=== PATIENT | male | born 1985 | race Hispanic/Latino ===

== ENCOUNTER 2020-09-10 14:57 | Inpatient (IN) | payer SELFPAY ==
[2020-09-10] MEDS ORDERED: HYDRALAZINE HCL 20 MG/ML VIAL ONE (15:53)
[2020-09-10] MEDS ORDERED: NA CHLORIDE 0.9% 1,000 ML ONE (15:53)
[2020-09-10 16:00] LABS: Absolute Lymphocytes (CBC) 1.5 K/uL (0.7-4.9); Basophils % 1.3 % (0-1.3); Lymphocytes % 18.1 % (15.3-44.8); MPV 10.9 fL (7.6-11.3); RBC Red Blood Cell Count 4.71 M/uL (4.33-5.43)
[2020-09-10 16:12] LABS: Protime INR 1.15
[2020-09-10] MEDS ORDERED: LABETALOL 20 MG/4ML SYRINGE IV ONE (16:14)
[2020-09-10] MEDS ORDERED: FUROSEMIDE 40 MG/4 ML VIAL ONE (16:14)
[2020-09-10 16:28] LABS: Albumin 2.8 g/dL (3.4-5.0); Bilirubin Direct 0.3 mg/dL (0-0.2); Bilirubin Total 1.4 mg/dL (0.2-1.0); Magnesium 2.4 mg/dL (1.8-2.4); Potassium 3.8 mmol/L (3.5-5.1); Protein, Total 5.7 g/dL (6.4-8.2); Troponin (Emerg Dept Use Only) 0.33 ng/mL (0.0-0.045)
--- NOTE | 2020-09-10 16:39 | RAD REPORT ---
EXAM DESCRIPTION: RAD - Chest Single View - 09/10/2020 3:44 pm CLINICAL HISTORY: CHEST PAIN COMPARISON: May 2017 TECHNIQUE: AP portable chest image was obtained 09/10/2020 3:44 pm . FINDINGS: No peripheral mass or consolidation. Interstitial markings are increased over comparison. Significant enlargement of the cardiac silhouette since prior imaging. Vascular engorgement is presen t. No measurable pleural effusion and no pneumothorax. No acute bony abnormality seen. No acute aorti c findings suspected. IMPRESSION: Mild to moderate CHF/ volume overload pattern.
[2020-09-10] MEDS ORDERED: HEPARIN 5000 UNIT/ML 1 ML VIAL ONE (17:33)
[2020-09-10] MEDS ORDERED: NITROGLYCERIN/D5W 50 MG/250 ML BTL IV ONE (17:34)
[2020-09-10] MEDS ORDERED: HEPARIN/D5W 25,000 UNIT/500 ML BAG IV ONE (17:34)
[2020-09-10 17:41] LABS: Barbiturates NEGATIVE (NEGATIVE); Benzodiazepines NEGATIVE (NEGATIVE); Cocaine NEGATIVE (NEGATIVE); METHAMPHETAM NEGATIVE (NEGATIVE); Methadone NEGATIVE (NEGATIVE); Opiates NEGATIVE (NEGATIVE); Phencyclidine NEGATIVE (NEGATIVE); THC Cannibis NEGATIVE (NEGATIVE)
--- NOTE | 2020-09-10 18:04 | RAD REPORT ---
EXAM DESCRIPTION: CT - Chest For Pe Angio - 09/10/2020 5:46 pm CLINICAL HISTORY: CHEST PAIN COMPARISON: Chest Single View dated 09/10/2020 TECHNIQUE: Dynamically enhanced 3 mm thick images of the chest were obtained during administration o f approximately 150mL Isovue 370 IV contrast. Coronal and oblique MIP reconstruction images were gene rated and reviewed. Exam utilizes a protocol to evaluate the pulmonary arterial tree. All CT scans are performed using dose optimization technique as appropriate and may include automated exposure control or mA/KV adjustment according to patient size. FINDINGS: No pulmonary emboli are identified. The aorta as imaged shows no acute or suspicious finding. Cardiomegaly is present without pericardial thickening or effusion. Hypertrophy of the left ventricular myocardium is question that can be more sensitively assessed with follow-up outpatient echocardiogram. There is significant respiratory motio n degradation. Interstitial opacification is present in the lower lung ladd. Multiple patchy nodula r airspace opacities are present in the superior segment left lower lobe. There is a 7 millimeter nod ular focus in the left upper lobe at the aortic arch level. No large consolidations seen. Moderately large right pleural effusion is present. There is no pneumot horax. No mediastinal or hilar suspicious masses. No chest wall masses or abnormal axillary lymphadenopathy. IMPRESSION: No pulmonary emboli identified. Moderate-size right pleural effusion, cardiomegaly with questionable left ventricular myocardial hype rtrophy, and interstitial opacification consistent with a failure or volume overload pattern. Focal nodular opacities in the superior segment left lower lobe could be focal edema rather than pneu monia. The left upper lobe 7 mm nodule would not be expected to be aggressive in a patient this age. This co uld be noncalcified granuloma. A 6-12 month follow-up could be performed for ongoing clinical concern s.
[2020-09-10 18:38] LABS: Thyroid Stimulating Hormone 1.63 uIU/mL (0.360-3.740)
--- NOTE | 2020-09-10 18:46 | EDPHYS ---
Physician Documentation [facility] Name: Maury March Age: 35 yrs Sex: Male : 1985 Arrival Date: 09/10/2020 Time: 14:59 Bed 4 Private MD: ED Physician Phil Riggins HPI: 09/10 15:58 This 35 yrs old Male presents to ER via Ambulatory with complaints of Chest jr8 Pain, High Blood Pressure, Feet Swelling. 15:58 Patient presents with CP and SOB with BLE swelling. He reports having been dx with HTN jr8 years ago and was given lisinopril while in [place] [facility] 4 years ago. He reports not having any physician or healthcare and therefore has not been managing his condition. . 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 - Social history:: Smoking status: Patient denies any tobacco usage or history of. ROS: 16:01 Abdomen/GI: Negative for abdominal pain, nausea, vomiting, diarrhea, and constipation, jr8 Skin: Negative for injury, rash, and discoloration, Neuro: Negative for headache, weakness, numbness, tingling, and seizure. 16:01 Cardiovascular: Positive for chest pain, of the chest, edema, palpitations. 16:01 Respiratory: Positive for shortness of breath, at rest. Exam: 16:02 Head/Face: Normocephalic, atraumatic. Abdomen/GI: Soft, non-tender, with normal bowel jr8 sounds. No distension or tympany. No guarding or rebound. No evidence of tenderness throughout. Back: No spinal tenderness. No costovertebral tenderness. Full range of motion. Skin: Warm, dry with normal turgor. Normal color with no rashes, no lesions, and no evidence of cellulitis. MS/ Extremity: Pulses equal, no cyanosis. Neurovascular intact. Full, normal range of motion. Neuro: Awake and alert, GCS 15, oriented to person, place, time, and situation. Cranial nerves II-XII grossly intact. Motor strength 5/5 in all extremities. Sensory grossly intact. Cerebellar exam normal. Normal gait. 16:02 Chest/axilla: Inspection: normal, Palpation: is normal. 16:02 Cardiovascular: Rate: tachycardic, actual rate is 110 bpm, Rhythm: regular, Pulses: Pulses are 2+ in right radial artery and left radial artery. Heart sounds: normal, Edema: 2+ edema to level of left midcalf, left ankle, left foot, right midcalf, right ankle, right foot and right toes, pedal edema, that is moderate, ankle edema, that is moderate. 16:02 Respiratory: mild respiratory distress is noted, Respirations: tachypnea, Breath sounds: are clear throughout, Respiratory rate: 26 Vital Signs: 15:12 BP 206 / 148 RA; Pulse 117; Resp 20; Temp 97.6(TE); Pulse Ox 97% on R/A; Weight 81.65 ca1 kg (R); Height 5 ft. 9 in. (175.26 cm) (R); Pain 7/10; 15:16 BP 194 / 141 LA; ca1 15:30 BP 188 / 138; Pulse 110; Resp 38; Pulse Ox 97% on R/A; sv 16:15 BP 181 / 129; Pulse 103 MON; Resp 42; Pulse Ox 99% ; sv 16:30 BP 178 / 133; Pulse 93; Resp 58; Pulse Ox 100% on R/A; sv 17:00 BP 162 / 116; Pulse 94; Resp 42; Pulse Ox 100% ; sv 17:38 Weight 89.9 kg (M); sv 17:54 BP 178 / 122; Pulse 102 MON; Resp 42; Pulse Ox 97% ; sv 18:30 BP 170 / 117; Pulse 98; Resp 32; Pulse Ox 97% on R/A; sv 18:45 BP 167 / 108; Pulse 104; Resp 38; Pulse Ox 98% ; sv 19:15 BP 163 / 96; Pulse 103; Resp 28; Pulse Ox 95% ; sf 19:30 BP 168 / 119; Pulse 101; Pulse Ox 94% ; sf 20:00 BP 171 / 99; Pulse 99; Resp 28; Pulse Ox 97% ; sf 20:15 BP 186 / 110; Pulse 109; Pulse Ox 97% ; sf 20:30 BP 180 / 116; Pulse 104; Resp 26; Pulse Ox 98% ; sf 20:45 BP 175 / 106; Pulse 100; Pulse Ox 97% ; sf 21:00 BP 159 / 95; Pulse 96; Pulse Ox 94% ; sf 21:15 BP 172 / 107; Pulse 97; Pulse Ox 97% ; sf 21:30 BP 154 / 118; Pulse 105; Pulse Ox 97% ; sf 21:45 BP 163 / 97; Pulse 103; Resp 26; Pulse Ox 97% ; Pain 8/10; sf 22:15 BP 166 / 115; Pulse 102; Resp 26; Pulse Ox 98% on R/A; sf 22:30 BP 167 / 114; Pulse 102; Resp 26; Pulse Ox 96% ; sf 23:03 BP 161 / 113; Pulse 101; Resp 26; Pulse Ox 99% on R/A; sf 09/11 00:00 BP 163 / 109; Pulse 99; Resp 27; Pulse Ox 99% on R/A; ea 09/10 17:38 Body Mass Index 29.27 (89.90 kg, 175.26 cm) sv 16:15 Sinus tachycardia sv MDM: 09/10 15:28 Patient medically screened. [facility] 18:44 Data reviewed: vital signs, nurses notes, lab test result(s), EKG, radiologic studies, [facility] CT scan, plain films. Data interpreted: Pulse oximetry: on room air is 95 %. Interpretation: acceptable. Counseling: I had a detailed discussion with the patient and/or guardian regarding: the historical points, exam findings, and any diagnostic results supporting the discharge/admit diagnosis, lab results, radiology results, the need for further work-up and treatment in the hospital. ED course: Spoke with Dr. oHdge about patient. He is ok with keeping him here. Will get echo in the AM and continue HF medications . 09/10 15:29 Order name: Basic Metabolic Panel [facility] 09/10 15:29 Order name: CBC with Diff 09/10 15:29 Order name: LFT's; Complete Time: 16:30 09/10 15:29 Order name: Magnesium; Complete Time: 16:30 09/10 15:29 Order name: NT PRO-BNP; Complete Time: 16:30 09/10 15:29 Order name: PT-INR; Complete Time: 16:24 09/10 15:29 Order name: Troponin (emerg Dept Use Only); Complete Time: 16:30 09/10 15:29 Order name: UDS; Complete Time: 17:42 09/10 15:29 Order name: Basic Metabolic Panel [facility] 09/10 15:29 Order name: CBC with Diff [facility] 09/10 15:29 Order name: LFT's [facility] 09/10 15:29 Order name: Magnesium [facility] 09/10 15:29 Order name: NT PRO-BNP [facility] 09/10 15:29 Order name: PT-INR [facility] 09/10 15:29 Order name: XRAY Chest (1 view); Complete Time: 16:42 [facility] 09/10 15:29 Order name: Basic Metabolic Panel; Complete Time: 16:30 EDMS 09/10 15:30 Order name: CBC with Automated Diff; Complete Time: 16:09 EDMS 09/10 16:37 Order name: CT Chest For PE Angio; Complete Time: 18:06 [facility] 09/10 17:50 Order name: Urine Dipstick--Ancillary (enter results); Complete Time: 20:27 09/10 18:05 Order name: TSH; Complete Time: 18:46 [facility] 09/10 18:05 Order name: T4 Free; Complete Time: 18:46 [facility] 09/10 19:45 Order name: SARS-COV-2 RT PCR; Complete Time: 19:56 EDLA 09/10 15:16 Order name: EKG; Complete Time: 15:17 ca1 09/10 15:16 Order name: EKG - Nurse/Tech; Complete Time: 15:24 [facility] 09/10 15:29 Order name: Urine Dipstick-Ancillary (obtain specimen); Complete Time: 18:17 [facility] 09/10 15:29 Order name: Cardiac monitoring; Complete Time: 15:41 [facility] 09/10 15:29 Order name: IV Saline Lock; Complete Time: 15:41 [facility] 09/10 15:29 Order name: Labs collected and sent; Complete Time: 15:41 [facility] 09/10 15:29 Order name: O2 Per Protocol; Complete Time: 15:41 [facility] 09/10 15:29 Order name: O2 Sat Monitoring; Complete Time: 15:41 Administered Medications: Discontinued: NS 0.9% 1000 ml IV at 75 ml/hr continuous 15:42 Drug: NS 0.9% 1000 ml Route: IV; Rate: 75 ml/hr; Site: right antecubital; sv 15:42 Drug: hydrALAZINE 10 mg Route: IV; Rate: bolus; Site: right antecubital; sv 15:43 Follow up: Response: No adverse reaction; IV Status: Completed infusion; IV Intake: sv 0.5ml 16:02 Drug: Lasix (furosemide) 40 mg Route: IVP; Site: right antecubital; sv 16:26 Follow up: Response: No adverse reaction sv 16:42 CANCELLED (Physician Discretion): NS 0.9% 500 ml IV at bolus once jr8 16:45 Not Given (Physician Discretion): Labetalol 20 mg IVP once over 2 mins sv 16:46 Drug: Labetalol 10 mg Route: IVP; Site: right antecubital; sv 17:01 Follow up: Response: No adverse reaction sv 17:27 Drug: Heparin (NJ Drip) 12 units/kg/hr - (HEParin 92766 units, D5W 500 ml) sv {Co-Signature: hb (Lucrecia Hatch RN).} Route: IV; Rate: calculated rate; Site: right antecubital; 09/11 00:06 Follow up: Response: No adverse reaction; IV Status: Infusion continued upon admission sf 09/10 17:28 Drug: Heparin (NJ-Bolus with thrombolytic) - HEParin 60 units/kg {Co-Signature: hb sv (Lucrecia Hatch RN).} Route: IVP; Site: right antecubital; 17:58 Follow up: Response: No adverse reaction sv 18:10 Drug: Nitro Drip - (Nitroglycerin 50 mg, D5W 250 ml) Route: IV; Rate: 5 mcg/min; Site: sv right antecubital; 18:39 Follow up: Rate change 20 mcg/min sv 18:57 Follow up: Response: No adverse reaction; Rate change 30 calculated rate sv 20:36 Follow up: Rate change 35 mcg/min sf 21:32 Follow up: Rate change 40 mcg/min sf 23:19 Follow up: Rate change 45 mcg/min sf 09/11 00:06 Follow up: Response: No adverse reaction; IV Status: Infusion continued upon admission sf 09/10 22:01 Drug: Tylenol 1000 mg Route: PO; sf 23:20 Follow up: Response: No adverse reaction; Pain is decreased sf 23:19 Drug: Lisinopril 20 mg Route: PO; sf 09/11 00:05 Follow up: Response: No adverse reaction sf 09/10 23:19 Drug: Metoprolol TARTRATE (Lopressor) 50 mg Route: PO; 09/11 00:05 Follow up: Response: No adverse reaction sf Disposition: 07:13 Co-signature as Attending Physician, Phil Riggins MD I agree with the assessment and [facility] plan of care. Disposition: 09/10/20 18:46 Hospitalization ordered by George Partida for Inpatient Admission. Preliminary diagnosis are Acute diastolic (congestive) heart failure, Non-ST elevation (NSTEMI) myocardial infarction. - Bed requested for Intensive Care Unit. - Status is Inpatient Admission. sf - Condition is Fair. - Problem is new. - Symptoms have improved. Signatures: Dispatcher [employer] EDMS Marta Tillman RN RN sv Anderson, Corey, MD MD cha Roszak, Josh, PA PA jr8 Yolis Lewis RN RN [facility] Kris Cotto RN RN Lucrecia Hatch RN Corrections: (The following items were deleted from the chart) 09/10 15:30 15:30 TROPONIN (EMERG DEPT USE ONLY)+C.LAB.BRZ ordered. EDLA EDMS 15:33 15:30 Chest Single View+RAD.RAD.BRZ ordered. EDLA EDMS 15:42 15:29 Cardiac monitoring ordered. [facility] sv 15:42 15:29 Labs collected and sent ordered. [facility] sv 15:42 15:29 Oxygen Per Protocol ordered. [facility] sv 15:42 15:29 O2 Sat Monitoring ordered. gee sv 15:43 15:29 IV Saline Lock ordered. gee sv 16:42 16:37 NS 0.9% 500 ml IV at bolus once ordered. jr8 jr8 18:58 18:21 CORONAVIRUS+MR.LAB.BRZ ordered. EDLA EDMS 19:26 18:46 Hospitalization Ordered by George Partida MD for Inpatient Admission. Preliminary jr8 diagnosis is Acute diastolic (congestive) heart failure; Non-ST elevation (NSTEMI) myocardial infarction. Bed requested for Telemetry/MedSurg (Inpatient). Status is Inpatient Admission. Condition is Fair. Problem is new. Symptoms have improved. jr8 09/11 00:32 09/10 19:26 09/10/2020 18:46 Hospitalization Ordered by George Partida MD for Inpatient sf Admission. Preliminary diagnosis is Acute diastolic (congestive) heart failure; Non-ST elevation (NSTEMI) myocardial infarction. Bed requested for Intensive Care Unit. Status is Inpatient Admission. Condition is Fair. Problem is new. Symptoms have improved. jr8
--- NOTE | 2020-09-10 18:46 | ER ---
Nurse's Notes [facility] Name: Maury March Age: 35 yrs Sex: Male : 1985 Arrival Date: 09/10/2020 Time: 14:59 Bed 4 Private MD: Diagnosis: Acute diastolic (congestive) heart failure;Non-ST elevation (NSTEMI) myocardial infarction Presentation: 09/10 15:12 Chief complaint: Patient states: Chest pain, of and off x 1 week. Young ankle and Young ca1 feet swelling x 1 week. 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 SOB x 3 months, worse last 3 weeks, worse with exertion and laying flat. Coronavirus screen: Client denies travel out of the [place] in the last 14 days. At this time, the client does not indicate any symptoms associated with coronavirus-19. Ebola Screen: Patient negative for fever greater than or equal to 101.5 degrees Fahrenheit, and additional compatible Ebola Virus Disease symptoms Patient denies exposure to infectious person. Patient denies travel to an Ebola-affected area in the 21 days before illness onset. No symptoms or risks identified at this time. Initial Sepsis Screen: Does the patient meet any 2 criteria? No. Patient's initial sepsis screen is negative. Does the patient have a suspected source of infection? No. Patient's initial sepsis screen is negative. Risk Assessment: Do you want to hurt yourself or someone else? Patient reports no desire to harm self or others. Onset of symptoms was September 10, 2020. 15:12 Method Of Arrival: Ambulatory ca1 15:12 Acuity: DEJAH 2 ca1 Historical: - Allergies: 15:15 No Known Allergies; ca1 - Home Meds: 20:37 None [Active]; sf - PMHx: 15:15 Hypertension; Puri's Palsy; ca1 - PSHx: 15:15 None; ca1 - Immunization history:: Flu vaccine is up to date. - Social history:: Smoking status: Patient denies any tobacco usage or history of. Screenin:35 Abuse screen: Denies threats or abuse. Denies injuries from another. Nutritional sv screening: No deficits noted. Tuberculosis screening: No symptoms or risk factors identified. Fall Risk None identified. Assessment: 15:35 General: Appears in no apparent distress. uncomfortable, well developed, well sv nourished, Behavior is calm, cooperative, appropriate for age. Pain: Complains of pain in chest Pain does not radiate. Pain currently is 7 out of 10 on a pain scale. Quality of pain is described as pressure, Pain began months Is continuous. Neuro: Level of Consciousness is awake, alert, obeys commands, Oriented to person, place, time, situation, Moves all extremities. Full function Gait is steady, Speech is normal, but gets winded with talking. Cardiovascular: Patient's skin is warm and dry. Pulses are palpable in right radial artery and left radial artery Rhythm is sinus tachycardia. Respiratory: Airway is patent Respiratory effort is even, unlabored, Respiratory pattern is symmetrical, tachypnea. Derm: Skin is intact, Skin is pink, warm \T\ dry. Musculoskeletal: Range of motion: intact in all extremities, Swelling present in right leg and left leg. 16:02 Reassessment: Patient appears in no apparent distress at this time. No changes from sv previously documented assessment. Patient and/or family updated on plan of care and expected duration. Pain level reassessed. Patient is alert, oriented x 3, equal unlabored respirations, skin warm/dry/pink. 16:46 Reassessment: Patient appears in no apparent distress at this time. No changes from sv previously documented assessment. Patient and/or family updated on plan of care and expected duration. Pain level reassessed. Patient is alert, oriented x 3, equal unlabored respirations, skin warm/dry/pink. Patient states symptoms have not improved. 17:29 Reassessment: Patient appears in no apparent distress at this time. No changes from sv previously documented assessment. Patient and/or family updated on plan of care and expected duration. Pain level reassessed. Patient is alert, oriented x 3, equal unlabored respirations, skin warm/dry/pink. Patient states symptoms have not improved. 17:35 Reassessment: Urinal taken to CT, pt needing to urinate. sv 17:58 Reassessment: Patient appears in no apparent distress at this time. No changes from sv previously documented assessment. Patient and/or family updated on plan of care and expected duration. Pain level reassessed. Patient is alert, oriented x 3, equal unlabored respirations, skin warm/dry/pink. Patient states symptoms have not improved. 18:18 Reassessment: Patient appears in no apparent distress at this time. Patient and/or sv family updated on plan of care and expected duration. Pain level reassessed. Patient is alert, oriented x 3, equal unlabored respirations, skin warm/dry/pink. Patient states symptoms have improved. 18:41 Reassessment: Syd [employer] at the bedside. sv 18:57 Reassessment: Patient appears in no apparent distress at this time. Patient and/or sv family updated on plan of care and expected duration. Pain level reassessed. Patient is alert, oriented x 3, equal unlabored respirations, skin warm/dry/pink. 19:10 General: Appears in no apparent distress. comfortable, Behavior is calm, cooperative. sf Pain: Denies pain. Neuro: Level of Consciousness is awake, alert, Oriented to person, place, time, situation. Cardiovascular: Patient's skin is warm and dry. Edema is 2+ to left midcalf, left ankle, right midcalf and right ankle Rhythm is sinus tachycardia. Respiratory: Airway is patent Respiratory effort is even, unlabored, Respiratory pattern is symmetrical, tachypnea. GI: No signs and/or symptoms were reported involving the gastrointestinal system. : No signs and/or symptoms were reported regarding the genitourinary system. Derm: Skin is intact, Skin is pink, warm \T\ dry. Musculoskeletal: No signs and/or symptoms reported regarding the musculoskeletal system. 20:36 Reassessment: Patient appears in no apparent distress at this time. No changes from sf previously documented assessment. Patient and/or family updated on plan of care and expected duration. Pain level reassessed. Patient is alert, oriented x 3, equal unlabored respirations, skin warm/dry/pink. 21:32 Reassessment: Patient and/or family updated on plan of care and expected duration. Pain sf level reassessed. Patient is alert, oriented x 3, equal unlabored respirations, skin warm/dry/pink. Patient reports severe headache due to nitro infusion, GIL Velarde notified. 22:00 Reassessment: Patient appears in no apparent distress at this time. No changes from sf previously documented assessment. Patient and/or family updated on plan of care and expected duration. Pain level reassessed. Patient is alert, oriented x 3, equal unlabored respirations, skin warm/dry/pink. 23:08 Reassessment: Patient appears in no apparent distress at this time. No changes from sf previously documented assessment. Patient and/or family updated on plan of care and expected duration. Pain level reassessed. Patient is alert, oriented x 3, equal unlabored respirations, skin warm/dry/pink. 23:20 Reassessment: Patient states headache is slightly better. Vital Signs: 15:12 BP 206 / 148 RA; Pulse 117; Resp 20; Temp 97.6(TE); Pulse Ox 97% on R/A; Weight 81.65 ca1 kg (R); Height 5 ft. 9 in. (175.26 cm) (R); Pain 7/10; 15:16 BP 194 / 141 LA; ca1 15:30 BP 188 / 138; Pulse 110; Resp 38; Pulse Ox 97% on R/A; sv 16:15 BP 181 / 129; Pulse 103 MON; Resp 42; Pulse Ox 99% ; sv 16:30 BP 178 / 133; Pulse 93; Resp 58; Pulse Ox 100% on R/A; sv 17:00 BP 162 / 116; Pulse 94; Resp 42; Pulse Ox 100% ; sv 17:38 Weight 89.9 kg (M); sv 17:54 BP 178 / 122; Pulse 102 MON; Resp 42; Pulse Ox 97% ; sv 18:30 BP 170 / 117; Pulse 98; Resp 32; Pulse Ox 97% on R/A; sv 18:45 BP 167 / 108; Pulse 104; Resp 38; Pulse Ox 98% ; sv 19:15 BP 163 / 96; Pulse 103; Resp 28; Pulse Ox 95% ; sf 19:30 BP 168 / 119; Pulse 101; Pulse Ox 94% ; sf 20:00 BP 171 / 99; Pulse 99; Resp 28; Pulse Ox 97% ; sf 20:15 BP 186 / 110; Pulse 109; Pulse Ox 97% ; sf 20:30 BP 180 / 116; Pulse 104; Resp 26; Pulse Ox 98% ; sf 20:45 BP 175 / 106; Pulse 100; Pulse Ox 97% ; sf 21:00 BP 159 / 95; Pulse 96; Pulse Ox 94% ; sf 21:15 BP 172 / 107; Pulse 97; Pulse Ox 97% ; sf 21:30 BP 154 / 118; Pulse 105; Pulse Ox 97% ; sf 21:45 BP 163 / 97; Pulse 103; Resp 26; Pulse Ox 97% ; Pain 8/10; sf 22:15 BP 166 / 115; Pulse 102; Resp 26; Pulse Ox 98% on R/A; sf 22:30 BP 167 / 114; Pulse 102; Resp 26; Pulse Ox 96% ; sf 23:03 BP 161 / 113; Pulse 101; Resp 26; Pulse Ox 99% on R/A; sf 04 00:00 BP 163 / 109; Pulse 99; Resp 27; Pulse Ox 99% on R/A; ea 09/10 17:38 Body Mass Index 29.27 (89.90 kg, 175.26 cm) sv 16:15 Sinus tachycardia sv ED Course: 09/10 14:59 Patient arrived in ED. am2 15:15 Triage completed. ca1 15:15 Arm band placed on right wrist. ca1 15:21 Marta Tillman, RN is Primary Nurse. sv 15:28 Thomas Arcos PA is PHCP. jr8 15:28 Phil Riggins MD is Attending Physician. jr8 15:35 Patient has correct armband on for positive identification. Placed in gown. Bed in low sv position. Call light in reach. radiation monitor on. Pulse ox on. NIBP on. Door closed. Head of bed elevated. 15:35 Inserted saline lock: 20 gauge in right antecubital area, using aseptic technique. sv Blood collected. Flushed right antecubital with 5 ml normal saline. Patient maintains SpO2 saturation greater than 95% on room air. 15:41 XRAY Chest (1 view) Sent. sv 15:41 Basic Metabolic Panel Sent. sv 15:41 CBC with Diff Sent. sv 15:41 LFT's Sent. sv 15:41 Magnesium Sent. sv 15:41 NT PRO-BNP Sent. sv 15:41 PT-INR Sent. sv 15:43 CBC with Diff Sent. sv 15:43 Basic Metabolic Panel Sent. sv 15:45 XRAY Chest (1 view) In Process Unspecified. EDMS 17:[address] via wheelchair. sv 17:46 CT Chest For PE Angio In Process Unspecified. EDMS 17:[address]. sv 17:59 Awaiting radiology results. sv 18:45 George Partida MD is Hospitalizing Provider. jr8 19:06 Report given to Tisha SIMMONS and Kris SIMMONS. sv 19:07 Primary Nurse role handed off by Marta Tillman, RN sv 19:14 Kris Cotto, IRIS is Primary Nurse. 09/11 00:08 No provider procedures requiring assistance completed. IV is patent, is intact, with sf fluids infusing freely, Patient admitted, IV remains in place. Administered Medications: Discontinued: NS 0.9% 1000 ml IV at 75 ml/hr continuous 09/10 15:42 Drug: NS 0.9% 1000 ml Route: IV; Rate: 75 ml/hr; Site: right antecubital; sv 15:42 Drug: hydrALAZINE 10 mg Route: IV; Rate: bolus; Site: right antecubital; sv 15:43 Follow up: Response: No adverse reaction; IV Status: Completed infusion; IV Intake: sv 0.5ml 16:02 Drug: Lasix (furosemide) 40 mg Route: IVP; Site: right antecubital; sv 16:26 Follow up: Response: No adverse reaction sv 16:42 CANCELLED (Physician Discretion): NS 0.9% 500 ml IV at bolus once jr8 16:45 Not Given (Physician Discretion): Labetalol 20 mg IVP once over 2 mins sv 16:46 Drug: Labetalol 10 mg Route: IVP; Site: right antecubital; sv 17:01 Follow up: Response: No adverse reaction sv 17:27 Drug: Heparin (AZ Drip) 12 units/kg/hr - (HEParin 83132 units, D5W 500 ml) sv {Co-Signature: hb (Lucrecia Hatch RN).} Route: IV; Rate: calculated rate; Site: right antecubital; 09/11 00:06 Follow up: Response: No adverse reaction; IV Status: Infusion continued upon admission sf 09/10 17:28 Drug: Heparin (AZ-Bolus with thrombolytic) - HEParin 60 units/kg {Co-Signature: hb sv (Lucrecia Hatch RN).} Route: IVP; Site: right antecubital; 17:58 Follow up: Response: No adverse reaction sv 18:10 Drug: Nitro Drip - (Nitroglycerin 50 mg, D5W 250 ml) Route: IV; Rate: 5 mcg/min; Site: sv right antecubital; 18:39 Follow up: Rate change 20 mcg/min sv 18:57 Follow up: Response: No adverse reaction; Rate change 30 calculated rate sv 20:36 Follow up: Rate change 35 mcg/min sf 21:32 Follow up: Rate change 40 mcg/min sf 23:19 Follow up: Rate change 45 mcg/min 09/11 00:06 Follow up: Response: No adverse reaction; IV Status: Infusion continued upon admission 09/10 22:01 Drug: Tylenol 1000 mg Route: PO; 23:20 Follow up: Response: No adverse reaction; Pain is decreased 23:19 Drug: Lisinopril 20 mg Route: PO; 09/11 00:05 Follow up: Response: No adverse reaction 09/10 23:19 Drug: Metoprolol TARTRATE (Lopressor) 50 mg Route: PO; 09/11 00:05 Follow up: Response: No adverse reaction Intake: 09/10 15:43 IV: 1ml; Total: 1ml. sv Output: 16:46 Urine: 1450ml (Voided); Total: 1450ml. sv 17:29 Urine: 350ml (Voided); Total: 1800ml. sv 17:57 Urine: 850ml (Voided); Total: 2650ml. sv 18:39 Urine: 750ml (Voided); Total: 3400ml. sv 22:02 Urine: 1825ml (Voided); Total: 5225ml. Outcome: 18:46 Decision to Hospitalize by Provider. jr8 09/11 00:09 Condition: stable sf Instructed on the need for admit. 00:20 Admitted to ICU accompanied by nurse, via wheelchair, room ER 12, Report called to janel Farias RN 00:32 Patient left the ED. Signatures: Dispatcher [employer] EDMA Marta Tillman RN IRIS Thomas Arcos PA PA jr8 Lena Underwood Elena, RN RN ea Acob, Cheryl, RN RN ca1 Fitzpatrick, Steven, RN RN sf Heather Baxter RN Corrections: (The following items were deleted from the chart) 09/10 15:17 15:12 Chief complaint: Patient states: Chest pain, of and off x 1 week. Young ankle and ca1 Young feet swelling x 1 week. 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 ca1 15:46 15:30 BP 188 / 138; Pulse 110bpm; Resp 18bpm; Pulse Ox 97% RA; sv sv 16:47 16:15 BP 181 / 129; Pulse 103bpm; Monitor: Sinus tachycardiaResp 25bpm; Pulse Ox 99%; svsv 09/11 00:06 00:00 BP 170 / 132; Pulse 91bpm; Resp 27bpm; Pulse Ox 98%; ea ea
--- NOTE | 2020-09-10 19:17 | P.HP ---
Certification for Inpatient Patient admitted to: Inpatient With expected LOS: >2 Midnights Patient will require the following post-hospital care: None Practitioner: I am a practitioner with admitting privileges, knowledge of patient current condition, hospital course, and medical plan of care. Services: Services provided to patient in accordance with Admission requirements found in Title 42 Section 412.3 of the Code of Federal Regulations <KareenSyd - Last Filed: 09/10/20 19:12> Patient History Date of Service: 09/10/20 Primary Care Provider: None Reason for admission: NSTEMI, new onset CHF History of Present Illness: 35-year-old male with history of hypertension not currently taking any medications presents emergency department for 3 months of progressive shortness of breath, 2 weeks of chest pain and swelling to lower extremities. Patient also reports paroxysmal nocturnal dyspnea for the last few nights. On arrival to the emergency department patient is significantly hypertensive the diastolic pressure in the 120-1 30s. Patient with pitting edema bilateral lower extremities. Lab significant for BNP 77215 troponin 0.33 creatinine 1.[address] PE protocol negative for pulmonary embolism suggestive of moderate size right pleural effusion and cardiomegaly with possible left ventricular hypertrophy and interstitial opacification consistent with failure with volume overload. Patient was noted to have left upper lobe 7 mm nodule would not be expected to be aggressive and patient this age, could be noncalcified granulomata, recommend 6-12 months followup imaging. Patient diuresed, given antihypertensive agents in the emergency department, case was discussed with Cardiology by ED provider, recommends inpatient evaluation with echocardiogram. - Past Medical/Surgical History Diabetic: No -: Hypertension -: no hx Psychosocial/ Personal History: Currently unemployed, lives with his and son - Family History Father Notes: Unaware of father's past medical history reports grandfather had heart disease. - Social History Smoking Status: Current some day smoker Alcohol use: No CD- Drugs: Yes Caffeine use: Yes Place of Residence: Home <Syd Mathur - Last Filed: 09/10/20 19:12> Date of Service: 09/11/20 <George Partida - Last Filed: 09/11/20 18:03> Allergies No Known Allergies Allergy (Verified 05/16/17 20:21) Home Medications: Fluoxetine HCl [Prozac] 20 mg PO DAILY #30 capsule 05/17/17 Valsartan [Diovan*] 160 mg PO BID #60 tab 05/17/17 clonazePAM [Klonopin] 0.5 mg PO TID PRN #60 tablet 05/17/17 Review of Systems 10-point ROS is otherwise unremarkable Respiratory: Shortness of Breath, SOB with Excertion Cardiovascular: Chest Pain, Paroxysmal Noc. Dyspnea, Edema <Syd Mathur - Last Filed: 09/10/20 19:12> Physical Examination - Physical Exam General: Alert, In no apparent distress HEENT: Atraumatic, PERRLA, Mucous membr. moist/pink Neck: Supple, 2+ carotid pulse no bruit, No LAD Respiratory: Normal air movement, Diminished (Bilaterally), Crackles/rales (By basilar) Cardiovascular: Regular rate/rhythm, Normal S1 S2, Edema (2+ pitting edema bilateral lower extremities) Capillary refill: <2 Seconds Gastrointestinal: Normal bowel sounds, No tenderness Musculoskeletal: No tenderness Integumentary: No rashes Neurological: Normal speech, Normal strength at 5/5 x4 extr, Normal tone, Normal affect - Studies Laboratory Data (last 24 hrs) 09/10/20 15:32: PT 13.2 H, INR 1.15 09/10/20 15:32: WBC 8.40, Hgb 12.8 L, Hct 39.0 L, Plt Count 182 09/10/20 15:32: Sodium 143, Potassium 3.8, BUN 25 H, Creatinine 1.45 H, Glucose 113 H, Magnesium 2.4, Total Bilirubin 1.4 H, AST 15, ALT 38, Alkaline Phosphatase 59 <Syd Mathur - Last Filed: 09/10/20 19:12> Assessment and Plan - Plan Assessment NSTEMI likely related to demand ischemia from new onset CHF-unknown EF Acute kidney injury Hypertension Plan NSTEMI likely related to demand ischemia from new onset CHF-unknown EF: Cardiology consulted, trend troponins, monitor on telemetry. 1500 cc per day fluid restriction, daily weights. Continue with IV Lasix for diuresis 40 mg IV b.i.d., JENNY-inhibitor and beta-ernesto therapy initiated. Echocardiogram ordered, thyroid panel/lipid panel for morning labs. DVT prophylaxis Lovenox ordered subcutaneous once daily. Appreciate further input from cardiology. Acute kidney injury: Suspects cardiorenal syndrome, obtain renal ultrasound, nephrology consulted, continued IV diuresis this time. Hypertension: Initiated therapy with JENNY-inhibitor, beta-ernesto, p.r.n. hydralazine. Adjust as necessary. Appreciate further input from Cardiology. Discharge Plan: Home Plan to discharge in: 72 Hours - Advance Directives Does patient have a Living Will: No Does patient have a Durable POA for Healthcare: No - Code Status/Comfort Care Code Status Assessed: Yes (Full code) Critical Care: No Time Spent Managing Pts Care (In Minutes): 55 <Syd Mathur - Last Filed: 09/10/20 19:12> - Plan Plan of care reviewed as noted above by Syd Mathur on Nitro drip, continue IV diuresis. JENNY, BB f/u echo Cardiology and nephrology consulted <George Partida - Last Filed: 09/11/20 18:03>
[2020-09-10] MEDS ORDERED: ACETAMINOPHEN 500 MG TAB ONE (22:15)
[2020-09-10] MEDS ORDERED: lisinopriL 20 MG TAB ONE (23:35)
[2020-09-10] MEDS ORDERED: METOPROLOL TAR 50 MG TAB ONE (23:35)
[2020-09-10] MEDS ORDERED: ONDANSETRON 4 MG/2 ML VIAL IV PRN (23:38)
[2020-09-10] MEDS: METOPROLOL TAR 50 MG TAB PO SCH (23:38)
[2020-09-10] MEDS ORDERED: NITROGLYCERIN/D5W 50 MG/250 ML BTL IV PRN (23:38)
[2020-09-10] MEDS ORDERED: HYDRALAZINE HCL 20 MG/ML VIAL IV PRN (23:38)
[2020-09-11] MEDS: HYDROCODONE/APAP 7.5/325 MG TAB PO PRN ×3 (04:45→20:43)
[2020-09-11] MEDS ORDERED: HYDROCODONE/APAP 7.5/325 MG TAB ONE ×2 (05:00→10:30)
[2020-09-11] MEDS ORDERED: ONDANSETRON 4 MG/2 ML VIAL ONE (05:06)
[2020-09-11 05:12] LABS: Absolute Lymphocytes (CBC) 1.8 K/uL (0.7-4.9); Basophils % 0.7 % (0-1.3); Hematocrit 36.4 % (39.6-49.0); Lymphocytes % 16.2 % (15.3-44.8); MPV 10.2 fL (7.6-11.3); RBC Red Blood Cell Count 4.47 M/uL (4.33-5.43)
[2020-09-11 05:27] LABS: Albumin 2.7 g/dL (3.4-5.0); Bilirubin Total 1.9 mg/dL (0.2-1.0); Magnesium 2.2 mg/dL (1.8-2.4); Potassium 3.5 mmol/L (3.5-5.1); Protein, Total 5.5 g/dL (6.4-8.2); Uric Acid 6.4 mg/dL (3.5-7.2)
--- NOTE | 2020-09-11 06:53 | EKG ---
Test Date: 2020-09-10 Test Time: 15:22:18 Maintenance Foreman: PERLA MEASUREMENT RESULTS: Intervals: Rate: 114 OK: 168 QRSD: 102 QT: 336 QTc: 463 [place]: P: 71 OK: 168 QRS: 49 T: 234 INTERPRETIVE STATEMENTS: Sinus tachycardia Possible Left atrial enlargement T wave abnormality, consider inferolateral ischemia Abnormal ECG Compared to ECG 05/16/2017 14:07:02 T-wave abnormality now present Sinus bradycardia no longer present ST (T wave) deviation no longer present Possible ischemia still present Electronically Signed On 09-11-20 06:51:28 CDT by Jono Hodge
--- NOTE | 2020-09-11 08:07 | RAD REPORT ---
EXAM DESCRIPTION: US - Renal Ultrasound-Complete - 09/11/2020 7:30 am CLINICAL HISTORY: Acute renal insufficiency COMPARISON: None FINDINGS: The right kidney measures 10 cm with a mildly increased echotexture The left kidney measures 13 cm with a mildly increased echotexture. A 1.4 centimeter cyst Hydronephrosis is not seen. No gross abnormality of bladder IMPRESSION: Mildly increased renal echotexture probably indicating parenchymal disease
[2020-09-11] MEDS: FUROSEMIDE 40 MG/4 ML VIAL IV SCH ×2 (08:16→16:22)
[2020-09-11] MEDS: lisinopriL 20 MG TAB PO SCH (08:17)
[2020-09-11] MEDS: METOPROLOL TAR 50 MG TAB PO SCH ×2 (08:18→20:43)
[2020-09-11] MEDS: ENOXAPARIN 40 MG/0.4 ML SQ SCH (08:19)
[2020-09-11] MEDS ORDERED: METOPROLOL TAR 50 MG TAB ONE (08:25)
[2020-09-11] MEDS ORDERED: FUROSEMIDE 40 MG/4 ML VIAL ONE ×2 (08:26→16:39)
[2020-09-11] MEDS ORDERED: lisinopriL 20 MG TAB ONE (08:26)
[2020-09-11] MEDS ORDERED: ENOXAPARIN 40 MG/0.4 ML SQ ONE (08:26)
[2020-09-11] MEDS ORDERED: HEPARIN/D5W 25,000 UNIT/500 ML BAG IV SCH (09:00)
[2020-09-11] MEDS ORDERED: PNEUMOCOCCAL VACCINE 0.5 ML IMVAC ONE (09:00)
--- NOTE | 2020-09-11 12:42 | P.PN ---
Subjective Date of Service: 09/11/20 Primary Care Provider: None Chief Complaint: NSTEMI, new onset CHF Subjective: Improving (Patient reports feeling significantly better, breathing more comfortably. Still on heparin drip and nitro drip. Denies any chest pain) Review of Systems 10-point ROS is otherwise unremarkable Physical Examination - Vital Signs Temperature: 98.2 F Blood Pressure: 144/94 Pulse: 98 Respirations: 24 Pulse Ox (%): 92 - Studies Laboratory Data (last 24 hrs) 09/10/20 15:32: PT 13.2 H, INR 1.15 09/10/20 15:32: WBC 8.40, Hgb 12.8 L, Hct 39.0 L, Plt Count 182 09/10/20 15:32: Sodium 143, Potassium 3.8, BUN 25 H, Creatinine 1.45 H, Glucose 113 H, Magnesium 2.4, Total Bilirubin 1.4 H, AST 15, ALT 38, Alkaline Phosphatase 59 Assessment & Plan Physician Review Additional Text: Physical exam General: NAD, AAOx3 HEENT: Normal conjunctiva, sclerae anicteric CV: RRR, no murmur Pulm: diminished bilaterally with faint crackles at bases Abd: soft, NTND Ext: 1-2+ edema bilaterally Problem list NSTEMI likely related to demand ischemia from new onset CHF-unknown EF acute, new onset CHF, unknown EF Acute kidney injury Hypertension -NSTEMI likely due to demand ischemia in setting of new onset CHF -likely due to uncontrolled hypertension -continue with fluid restriction, daily weights, IV Lasix -cardiology consulted -YAZAN improved, nephrology consulted - renal U/S ordered, doppler to r/o JOHN given age of HTN VTE: Heparin drip Code: full Dispo: anticipate dc home in ~48hrs, continue ICU level of care today Time Spent Managing Pts Care (In Minutes): 35
--- NOTE | 2020-09-11 13:23 | P.PN ---
Subjective Date of Service: 09/11/20 Primary Care Provider: None Chief Complaint: NSTEMI, new onset CHF Physical Examination - Vital Signs Temperature: 98.2 F Blood Pressure: 144/94 Pulse: 98 Respirations: 24 Pulse Ox (%): 92 - Studies Laboratory Data (last 24 hrs) 09/10/20 15:32: PT 13.2 H, INR 1.15 09/10/20 15:32: WBC 8.40, Hgb 12.8 L, Hct 39.0 L, Plt Count 182 09/10/20 15:32: Sodium 143, Potassium 3.8, BUN 25 H, Creatinine 1.45 H, Glucose 113 H, Magnesium 2.4, Total Bilirubin 1.4 H, AST 15, ALT 38, Alkaline Phosphatase 59 Assessment And Plan - Plan # YAZAN 2/2 accelerated Htn Improved Baseline SCr around 0.9 Monitor renal panel BP control # Acute decompensated HF 2/2 accelerated Htn Cont diuretic BP control Low Na diet # Premature Htn Dx'ed w/ Htn at 27 yo No s/sx of pheochromocytoma Check for plasma huang & PRA for ? primary hyperaldo Check a renal doppler US to assess for JOHN Noted to have apneic spells by ICU staff - check overnight oximetry; will also need a formal sleep study after hosp dc BP currently controlled, cont current BP med regimen Physician Review Additional Text: Physical exam General: NAD, AAOx3 HEENT: Normal conjunctiva, sclerae anicteric CV: RRR, no murmur Pulm: diminished bilaterally with faint crackles at bases Abd: soft, NTND Ext: 1-2+ edema bilaterally Problem list NSTEMI likely related to demand ischemia from new onset CHF-unknown EF Acute kidney injury Hypertension -NSTEMI likely due to demand ischemia in setting of new onset CHF -likely due to uncontrolled hypertension -continue with fluid restriction, daily weights, IV Lasix
--- NOTE | 2020-09-11 14:22 | ECHO ---
HEIGHT: 5 ft 9 in WEIGHT: 180 lb 0.119 oz DATE OF STUDY: 09/11/[address]: Syd Mathur NP 2-DIMENSIONAL: YES M.MODE: YES DOPPLER: YES COLOR FLOW: YES TDS: PORTABLE: DEFINITY: BUBBLE STUDY: DIAGNOSIS: NON ST MYOCARDIAL INFARCTION, NEW CONGESTIVE HEART FAILURE CARDIAC HISTORY: CATHERIZATION: NO SURGERY: NO PROSTHETIC VALVE: NO PACEMAKER: NO MEASUREMENTS (cm) DIASTOLIC (NORMALS) SYSTOLIC (NORMALS) IVSd 1.5 (0.6-1.2) LA Diam 4.6 (1.9-4.0) LVEF 18% LVIDd 5.1 (3.5-5.7) LVIDs 4.7 (2.0-3.5) %FS 8% LVPWd 1.5 (0.6-1.2) Ao Diam 2.7 (2.0-3.7) 2 DIMENSIONAL ASSESSMENT: RIGHT ATRIUM: NORMAL LEFT ATRIUM: DILATED RIGHT VENTRICLE: NORMAL LEFT VENTRICLE: DILATED WITH LEFT VENTRICULAR HYPERTROPHY TRICUSPID VALVE: MILD TRICUSPID REGURGITATION MITRAL VALVE: MILD MITRAL REGURGITATION PULMONIC VALVE: MILD PULMONIC INSUFFICIENCY AORTIC VALVE: NORMAL PERICARDIAL EFFUSION: NONE AORTIC ROOT: NORMAL LEFT VENTRICULAR WALL MOTION: SEVERE GLOBAL HYPOKINESIS. DOPPLER/COLOR FLOW: SEE BELOW COMMENTS: SEVERELY DEPRESSED LEFT VENTRICULAR EJECTION FRACTION 15-20%. SEVERE GLOBAL HYPOKINESIS. MILD TRICUSPID REGURGITATION. MILD MITRAL REGURGITATION. MODERATE LEFT VENTRICULAR HYPERTROPHY. TECHNOLOGIST: COOKIE GONZALES
--- NOTE | 2020-09-11 18:32 | CON ---
Date of Consultation: 09/11/2020 Reason For Consultation: Shortness of breath. History Of Present Illness: This is a 35-year-old male, who comes in with shortness of breath, ortho pnea, lower extremity edema. This has been going on for some time, worsened lately. He came in with very high blood pressure. Denies having any chest pain. No nausea, vomiting, or diarrhea. Past Medical History: Hypertension. Medications: Refer to reconciliation sheet for detailed list. Allergies: NO KNOWN DRUG ALLERGIES. Social History: Smokes marijuana periodically. Does not drink. Does not use any drugs. Family History: No premature coronary artery disease or cancer. Review of Systems: All systems reviewed and they were negative except what mentioned in the HPI. Physical Examination: Vital Signs: Temperature is 98.2, pulse 98, breathing at 24, blood pressure is 144/94, and blood pre ssure on admission was 206/148. General: This is a pleasant young male, in no distress. Head and Neck: Pupils are equal, reactive to light. Intact eye movements. Positive JVD. No cervic al lymphadenopathy. Neck: Supple. Thyroid is not enlarged. Lungs: Crackles in both bases. No accessory muscle use. Normal structure. Heart: Regular rate and rhythm with S3. Abdomen: Soft, nontender. Bowel sounds positive. No organomegaly. No masses or hernia. No rigidi ty or rebound. Extremities: Edema bilaterally. No clubbing or cyanosis. Intact pulses. Skin: No rashes. Neurologic: Alert, awake, oriented x3. No acute focal deficits appreciated. Investigations: Troponins 0.3 and 0.29. Creatinine is 1.45 and 1.12. Hemoglobin 12.1. Assessment And Plan: Acute congestive heart failure. Echo showed a very low ejection fraction with left ventricular hypertrophy. Please obtain a Lexiscan nuclear stress test to further evaluate for i schemia. We might need to do coronary angiogram for definitive ischemic evaluation. Meanwhile diure se with Lasix 40 mg IV q.12 hours. Monitor BUN, creatinine, electrolytes. SR/MODL Voice ID: [id number] Report ID: [id number]
[2020-09-11] MEDS ORDERED: ACETAMINOPHEN 500 MG TAB PO PRN (18:35)
[2020-09-11] MEDS ORDERED: HYDRALAZINE HCL 20 MG/ML VIAL ONE (18:51)
[2020-09-11 20:39] VITALS: BMI 27.3
--- NOTE | 2020-09-12 00:40 | P.CNS ---
Date of Consult: 09/11/20 Reason for Consult: YAZAN, Htn, Volume overload Requesting Physician: George Partida Primary Care Provider: None Chief Complaint: NSTEMI, new onset CHF History of Present Illness: 35M w/ PMHx of premature Htn, who p/w a 3 mo hx of SOB, and more recently with chest pain as well as progressive bilateral lower extremity edema and pressure and nocturnal dyspnea. He was noted to be having severe hypertension on initial presentation with SBP of 200 mmHg. He was noted to be in acute heart failure with significantly elevated BNP level and 13,000 and with a troponin leak and chest imaging consistent with CHF. He was noted to have a gag with initial serum creatinine 1.45. His baseline serum creatinine is around 0.9. He received blood pressure medications as well as diuretics and his serum creatinine has improved to 1.12 currently. He had a renal ultrasound done that was unremarkable except for a one-point centimeter cyst on the left kidney. He states that he was first told he was hypertensive when he was 27 years old while he was incarcerated. Allergies No Known Allergies Allergy (Verified 09/11/20 22:03) Home Medications: Biotin 1 tab PO DAILY 09/11/20 Cider Vinegar [Apple Cider Vinegar] 600 mg PO DAILY 09/11/20 Olga [place]/Linoleic/Gamoleni [Evening [place] 1,000 mg Sftg] 1 cap PO DAILY 09/11/20 L. Acidophilus/Bifid. Animalis [Probiotic 5 Billion Cell Cap] 1 cap PO DAILY 09/11/20 Magnesium Oxide [Magnesium] 1 cap PO DAILY 09/11/20 Milk Thistle Seed Extract [Milk Thistle] 1,000 mg PO DAILY 09/11/20 Multivit-Min/Iron/Folic Acid/K [Adults Multivitamin Caplet] 1 tab PO DAILY 09/11/20 Oil Of Oregano 1,500 mg PO DAILY 09/11/20 Turmeric Root Extract [Turmeric Curcumin] 1,000 mg PO DAILY 09/11/20 Vitamin E (Dl,Tocopheryl Acet) [Vitamin E-Oil] 13,500 mg PO DAILY 09/11/20 - Past Medical/Surgical History Diabetic: No -: Hypertension -: no hx Psychosocial/ Personal History: Currently unemployed, lives with his and son - Family History Father Notes: Unaware of father's past medical history reports grandfather had heart disease. - Social History Smoking Status: Unknown if ever smoked Alcohol use: No CD- Drugs: Yes Caffeine use: No Place of Residence: Home Review of Systems General: Weakness Eyes: Unremarkable ENT: Unremarkable Respiratory: Shortness of Breath Cardiovascular: Chest Pain Gastrointestinal: Unremarkable Genitourinary: Unremarkable Musculoskeletal: Unremarkable (Leg edema) Integumentary: Unremarkable Neurological: Weakness Lymphatics: Unremarkable Physical Examination Temp Pulse Resp BP Pulse Ox 98.6 F 94 H 18 142/86 H 99 09/11/20 20:00 09/11/20 20:43 09/11/20 20:00 09/11/20 20:43 09/11/20 20:00 General: In no apparent distress HEENT: Atraumatic, Normocephalic Neck: Supple Respiratory: Normal air movement Cardiovascular: Edema Gastrointestinal: Soft and benign, Non-distended Musculoskeletal: Swelling Integumentary: No rashes Neurological: Normal tone Urinary: Other (No bladder distention) External genitalia: Deferred Rectal: Deferred Conclusions/Impression: # YAZAN 2/2 accelerated Htn Improved Baseline SCr around 0.9 Monitor renal panel BP control # Acute decompensated HF 2/2 accelerated Htn Cont diuretic BP control Low Na diet # Accelerated Htn; Hx of premature Htn Dx'ed w/ Htn at 27 yo No s/sx of pheochromocytoma Check for plasma huang & PRA for ? primary hyperaldo Check a renal doppler US to assess for JOHN Noted to have apneic spells by ICU staff - check overnight oximetry; will also need a formal sleep study after hosp dc BP currently controlled, cont current BP med regimen # NSTEMI likely demand ischemia IV diuretics as above Low-salt diet Appreciate cardiology input Continue other cardioprudent medications
[2020-09-12] MEDS: HYDROCODONE/APAP 7.5/325 MG TAB PO PRN ×2 (02:04→09:10)
[2020-09-12 05:44] LABS: Basophils % 1.3 % (0-1.3); Hematocrit 37.1 % (39.6-49.0); Lymphocytes % 25.9 % (15.3-44.8); RBC Red Blood Cell Count 4.54 M/uL (4.33-5.43)
[2020-09-12 06:05] LABS: Albumin 2.6 g/dL (3.4-5.0); Bilirubin Total 1.1 mg/dL (0.2-1.0); Magnesium 2.4 mg/dL (1.8-2.4); Potassium 3.8 mmol/L (3.5-5.1); Protein, Total 5.4 g/dL (6.4-8.2)
[2020-09-12 06:49] VITALS: BP 142/93; TEMP 97.5
--- NOTE | 2020-09-12 08:56 | RAD REPORT ---
EXAM DESCRIPTION: US - Abdomen Pelvis Scan US - 09/12/2020 8:08 am CLINICAL HISTORY: Premature Htn; assess for renal artery stenosis COMPARISON: Renal Ultrasound-Complete dated 09/11/2020 TECHNIQUE: Sonographic evaluation of the kidneys was performed with measurements obtained and gross anatomic assessment performed.Doppler evaluation of the renal arteries, interlobar arteries and aorta performed. Waveforms and velocities were recorded. The renal artery ratios and resistive index marleni ues were calculated. FINDINGS: No hydronephrosis or suspicious mass identified in either kidney. Cortical echogenicity an d cortical thickness are normal range. Doppler evaluation shows no suspicious velocity value or wavef orm. Resistive index values are normal or near normal with no worrisome finding. Renal artery ratios are normal range measuring 1.04 on the right and 0.89 on the left. IMPRESSION: Normal renal vascular scan. No findings to suspect renal artery stenosis.
[2020-09-12] MEDS: ENOXAPARIN 40 MG/0.4 ML SQ SCH (08:57)
[2020-09-12] MEDS: FUROSEMIDE 40 MG/4 ML VIAL IV SCH (08:57)
[2020-09-12] MEDS: lisinopriL 20 MG TAB PO SCH (08:58)
[2020-09-12] MEDS: METOPROLOL TAR 50 MG TAB PO SCH (08:58)
[2020-09-12] MEDS ORDERED: KCL 20 MEQ/100 mL IVPB 20 MEQ/100 ML BAG IV ONE (09:00)
[2020-09-12 10:44] VITALS: O2SAT 91
[2020-09-12] MEDS ORDERED: REGADENOSON 0.4 MG/5 ML SYR IV ONE (10:54)
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
[2020-09-17 13:39] LABS: Urine Blood Negative (Negative); Urine Glucose Negative (Negative); Urine Protein Negative (Negative)
== END 2020-09-12 11:52 | disposition left against medical advice (07) | DRG 280 ==
LOC: ER 14:57 → ERHOLD 19:05 → 2ND 09-11 20:32
PROVIDERS: ADMIT Hospitalist; ATTEND Hospitalist
DX: I11.0 Hypertensive heart disease with heart failure (principal); I50.21 Acute systolic (congestive) heart failure; I21.A1 Myocardial infarction type 2; N17.9 Acute kidney failure, unspecified; F17.200 Nicotine dependence, unspecified, uncomplicated; Z53.29 Procedure and treatment not carried out because of patient's decision for other reasons; Z56.0 Unemployment, unspecified; Z79.899 Other long term (current) drug therapy; Z79.82 Long term (current) use of aspirin; Z20.822 Contact with and (suspected) exposure to COVID-19
CPT/HCPCS: 36415; 71045; 71275; 76770; 80048; 80053; 80061; 80076; 80307; 81003; 82088; 82550; 83735; 83880; 84244; 84439; 84443; 84484; 84550; 85025; 85610; 85730; 93005; 93306; 93975; 96365; 96366; 96375; 99285; J0360; J1644; J1650; J1940; J2405; J2785; J3480; J7030; Q9967; U0003